=== PATIENT | male | born 1970 | race Caucasian/White ===

== ENCOUNTER 2016-09-18 20:20 | Emergency (ER) | payer OTHER ==
[~2016-09-18] VITALS: Ht 180.3 cm; Wt 61.4 kg
[2016-09-18 21:01] LABS: BASO % 0.3 % (0.0-2.0); EOS # 0.2 (0.0-0.7); EOS % 1.1 % (0-4.0); GRAN # 9.8 (1.4-6.5); GRAN % 72.2 % (42.2-75.2); HEMOGLOBIN 10.9 g/dl (13.5-18.0); LYMPH # 2.5 (1.2-3.4); LYMPH % 18.1 % (20.0-51.0); MEAN CELL VOLUME 89 fl (80.0-100.0); MEAN CORPUSCULAR HEMOGLOBIN 31 pg (27.0-31.0); MEAN CORPUSCULAR HGB CONC 35 g/dl (33.0-37.0); MEAN PLATELET VOLUME 8.9 fl (7.4-10.4); MONO # 1.1 (0.1-0.6); MONO % 7.9 % (1.7-9.3); PLATELET COUNT 292 K/mm3 (130-400); RED BLOOD COUNT 3.49 M/mm3 (4.20-5.60); REDCELL DISTRIBUTION WIDTH-CV 11.9 % (11.5-14.5); WHITE BLOOD COUNT 13.6 K/mm3 (4.8-10.8)
[2016-09-18 21:11] LABS: ADJUSTED CALCIUM 9.3 mg/dL (8.4-10.2); ALBUMIN 4.2 gm/dL (3.5-5.0); BILIRUBIN,TOTAL 0.5 mg/dL (0.0-1.0); CALCIUM 9.5 mg/dL (8.4-10.2); CREATININE, serum 0.89 mg/dL (0.66-1.25); POTASSIUM 4.3 mmol/L (3.4-5.0); TOTAL PROTEIN 7.5 gm/dL (6.4-8.2)
[2016-09-18 21:16] LABS: PH 8 (5-8); SQUAMOUS EPITHELIAL None Seen /hpf; URINE APPEARANCE Cloudy; URINE BACTERIA None Seen /hpf; URINE BILIRUBIN Negative (NEGATIVE); URINE BLOOD Negative (NEGATIVE); URINE COLOR Yellow; URINE GLUCOSE Negative (NEGATIVE); URINE KETONE Negative (NEGATIVE); URINE RBC 0-2 /hpf; URINE UROBILINOGEN >=4.0 mg/dL (NEGATIVE); URINE WBC None Seen /hpf
[2016-09-18 21:26] LABS: ERYTHROCYTE SEDIMENTATION RATE 34 mm/hr (0-15)
[2016-09-18] MEDS ORDERED: DOXYCYCLINE 10100 MG PO (23:43)
[2016-09-18 23:45] VITALS: BP 124/69
[2016-09-18 23:51] LABS: CEREBROSPINAL TUBE #1; CSF APPEARANCE CLEAR; CSF COLOR COLORLESS
[2016-09-18 23:57] VITALS: TEMP 99.2
[2016-09-19] LABS: CEREBROSPINAL TUBE #4; CSF APPEARANCE CLEAR; CSF COLOR COLORLESS
[2016-09-19 00:22] VITALS: PULSE 87
== END 2016-09-19 00:24 | disposition home or self-care (01) ==
LOC: COL.ER 20:20
PROVIDERS: Emergency Medicine
DX: R51 Headache (principal); R50.9 Fever, unspecified; M79.1 Myalgia; J02.9 Acute pharyngitis, unspecified; R09.89 Other specified symptoms and signs involving the circulatory and respiratory systems; Z86.19 Personal history of other infectious and parasitic diseases
CPT/HCPCS: J7030